=== PATIENT | female | born 1990 | race African-American/Black ===

== ENCOUNTER 2017-07-02 08:16 | Inpatient (IN) | payer SELFPAY ==
[~2017-07-02] VITALS: Ht 165.1 cm; Wt 73.0 kg
[2017-07-02] VITALS (22 sets, daily range): BP systolic 78–133; BP diastolic 49–107; PULSE 73–111; RESP 16–18; TEMP 98.1–99
[2017-07-02] MEDS ORDERED: LACTATED RINGER'S 1000 ML INJ 1,000 ML IV PRN (08:49)
--- NOTE | 2017-07-02 08:49 | HHI.HP ---
HPI Chief Complaint here for induction at 40 weeks Date Seen: Jul 02, 2017 Time Seen: 08:45 Travel History International Travel<30 Days: No Contact w/Intl Traveler<30Days: No Known Affected Area: No (came from [place] 90 days ago) History of Present Illness HPI 26 here for induction at 40 weeks Weeks Gestation: 40 Para: 1 : 2 History Past Medical History Medical History: Denies Significant Hx Past Surgical History Surgical History: No Previous Surgery Family History Family History: Negative Social History Alcohol Use: No Tobacco Use: No Substance Abuse: No Review of Systems Except as stated in HPI: all other systems reviewed are Neg Physical Exam Narrative GENERAL: Well-nourished, well-developed patient. SKIN: Warm and dry. HEAD: Normocephalic and atraumatic. EYES: No scleral icterus. No injection or drainage. ENT: No nasal drainage noted. Mucous membranes pink. Airway patent. NECK: Supple, trachea midline. No JVD. CARDIOVASCULAR: Regular rate and rhythm without murmurs, gallops, or rubs. RESPIRATORY: Breath sounds equal bilaterally. No accessory muscle use. BREASTS: Bilateral exam showed no masses , no retractions, no nipple discharge. ABDOMEN/GI: Abdomen soft, non-tender, bowel sounds present, no rebound, no guarding Gravid to 40 weeks size Fundal Height: [-] GENITOURINARY: External Genitalia: intact and normal in appearance BUS glands: [-] Cervix: [-] Dilatation: 2 Effacement: 70 Station: [-] Presentation: vtx Membranes: intact Uterine Contractions: [-] FHT's: Category: 1 Baseline: [-] Reactive: [-] Variability: [-] Decels: [-] EXTREMITIES: No cyanosis or edema. BACK: Nontender without obvious deformity. No CVA tenderness. NEUROLOGICAL: Awake and alert. Motor and sensory grossly within normal limits. Five out of 5 muscle strength in all muscle groups. Normal speech. Caprini VTE Risk Assessment Caprini VTE Risk Assessment: No/Low Risk (score <= 1) Caprini Risk Assessment Model Point Value = 1 Point Value = 2 Point Value = 3 Point Value = 5 Age 41-60 Minor surgery BMI > 25 kg/m2 Swollen legs Varicose veins or History of unexplained or recurrent spontaneous Oral contraceptives or hormone replacement Sepsis (< 1 month) Serious lung disease, including pneumonia (< 1 month) Abnormal pulmonary function Acute myocardial infarction Congestive heart failure (< 1 month) History of inflammatory bowel disease Medical patient at bed rest Age 61-74 Arthroscopic surgery Major open surgery (> 45 min) Laparoscopic surgery (> 45 min) Malignancy Confined to bed (> 72 hours) Immobilizing plaster cast Central venous access Age >= 75 History of VTE Family history of VTE Factor V Leiden Prothrombin [id number] Lupus anticoagulant Anticardiolipin antibodies Elevated serum homocysteine Heparin-induced thrombocytopenia Other congenital or acquired thrombophilia Stroke (< 1 month) Elective arthroplasty Hip, pelvis, or leg fracture Acute spinal cord injury (< 1 month) Prophylaxis Regimen Total Risk Factor Score Risk Level Prophylaxis Regimen 0-1 Low Early ambulation 2 Moderate Order ONE of the following: *Sequential Compression Device (SCD) *Heparin 5000 units SQ BID 3-4 Higher Order ONE of the following medications: *Heparin 5000 units SQ TID *Enoxaparin/Lovenox 40 mg SQ daily (WT < 150 kg, CrCl > 30 mL/min) *Enoxaparin/Lovenox 30 mg SQ daily (WT < 150 kg, CrCl > 10-29 mL/min) *Enoxaparin/Lovenox 30 mg SQ BID (WT < 150 kg, CrCl > 30 mL/min) AND/OR *Sequential Compression Device (SCD) 5 or more Highest Order ONE of the following medications: *Heparin 5000 units SQ TID (Preferred with Epidurals) *Enoxaparin/Lovenox 40 mg SQ daily (WT < 150 kg, CrCl > 30 mL/min) *Enoxaparin/Lovenox 30 mg SQ daily (WT < 150 kg, CrCl > 10-29 mL/min) *Enoxaparin/Lovenox 30 mg SQ BID (WT < 150 kg, CrCl > 30 mL/min) AND *Sequential Compression Device (SCD) Data Data Vital Signs Reviewed: Yes Group B Strep: Negative Assessment/Plan Problem List: (1) 40 weeks gestation of ICD Codes: Z3A.40 - 40 weeks gestation of Neeraj Pierre MD Jul 02, 2017 08:49
[2017-07-02] MEDS ORDERED: MINERAL OIL 10 ML VIAL TOPICAL PRN (09:00)
[2017-07-02] MEDS ORDERED: LIDOCAINE HCL 1% 50 ML VIAL INFIL PRN (09:00)
[2017-07-02] MEDS ORDERED: OXYTOCIN 30 UNITS-500ML PREMIX 500 ML IV SCH ×2 (09:00→16:30)
[2017-07-02] MEDS ORDERED: SODIUM CHLORID 0.9% 500 ML INJ 500 ML IV PRN (09:00)
[2017-07-02] MEDS ORDERED: LIDOCAINE HCL 1% 50 ML VIAL I-DERMAL PRN (09:00)
[2017-07-02] MEDS ORDERED: CITRIC ACID-SODIUM CITRATE LIQ 30 ML UDC PO SCH (09:00)
[2017-07-02] MEDS ORDERED: OXYTOCIN 30 UNITS-500ML PREMIX 500 ML IV ONE (09:00)
[2017-07-02 09:09] LABS: BASOPHIL % 0.2 % (0.0-2.0); EOSINOPHIL # 0.1 TH/MM3 (0-0.4); EOSINOPHIL % 1.2 % (0.0-4.0); HEMATOCRIT 37.1 % (35.0-46.0); HEMOGLOBIN 12.6 GM/DL (11.6-15.3); LYMPH % 20.2 % (9.0-44.0); LYMPHOCYTE # 1.7 TH/MM3 (1.0-4.8); MEAN CORPUSCULAR HEMOGLOBIN 28.8 PG (27.0-34.0); MEAN CORPUSCULAR HGB CONC 33.9 % (32.0-36.0); MONOCYTE # 0.7 TH/MM3 (0-0.9); NEUT % 70.4 % (16.0-70.0); PLATELET COUNT 149 TH/MM3 (150-450); RED BLOOD COUNT 4.37 MIL/MM3 (4.00-5.30); RED CELL DISTRIBUTION WIDTH 15.1 % (11.6-17.2); WHITE BLOOD COUNT 8.5 TH/MM3 (4.0-11.0)
[2017-07-02] MEDS ORDERED: SODIUM CHLOR 0.9% 1000 ML INJ 1,000 ML IV PRN (09:09)
[2017-07-02] MEDS: LACTATED RINGER'S 1000 ML INJ 1,000 ML IV SCH (09:13)
[2017-07-02 09:18] LABS: BILIRUBIN, URINE NEG (NEG); BLOOD, URINE NEG (NEG); GLUCOSE,URINE NEG (NEG); KETONE, URINE NEG (NEG); NITRITE,URINE NEG (NEG); SQUAMOUS EPITHELIAL CELL URINE <1 /hpf (0-5); URINE COLOR YELLOW (YELLW/STRAW); URINE LEUKOCYTE ESTERASE SMALL (NEG)
[2017-07-02 10:02] LABS: BANDS 4 % (0-6); LYMPHOCYTES 18 % (9-44); METAMYELOCYTES 3 % (0-1); MONOCYTES 11 % (0-8); MYELOCYTES 2 % (0-0); POLYS (SEG NEUTROPHILS) 62 % (16-70)
[2017-07-02 10:03] LABS: OVALOCYTES 1+ (NORMAL)
[2017-07-02] MEDS ORDERED: MEASLES, MUMPS, RUBELLA VACCINE 0.5 ML VIAL SQ ONE (16:00)
[2017-07-02] MEDS ORDERED: DIPHTH/TETANUS/ACEL PERTUSSIS (BOOSTER) 0.5 ML VIAL/PFS IM ONE (16:00)
--- NOTE | 2017-07-02 16:19 | PD.OB.DELI ---
Weeks gestation: 40 Gest age assessed date: Jul 02, 2017 Gest age assessed time: 09:00 Pt started active labor?: Yes Active labor start date: Jul 02, 2017 Active labor start time: 09:00 Medical induction of labor?: No Artificial rupture of membrane: Yes Artificial ROM date: Jul 02, 2017 Artifical ROM time: 09:55 Anesthesia: None Episiotomy: None Vaginal Delivery: Normal Presentation: Occiput anterior Nuchal Cord: None Delayed cord clamping (45 sec): Yes Shoulder Dystocia: Luba maneuver done Delivery date: Jul 02, 2017 Delivery time: 15:58 One Minute : 8 Five Minute : 9 Placenta: Spontaneous delivery Laceration: Vaginal laceration, 1 deg Repair: Chromic interrupted Estimated blood loss: 300 Neeraj Pierre MD Jul 02, 2017 16:19
[2017-07-02] MEDS ORDERED: ACETAMINOPHEN 325 MG TAB PO PRN (16:30)
[2017-07-02] MEDS ORDERED: ALUMINUM/MAGNESIUM/SIMETH 30 ML CUP PO PRN (16:30)
[2017-07-02] MEDS ORDERED: ZOLPIDEM TARTRATE 5 MG TAB PO PRN (16:30)
[2017-07-02] MEDS ORDERED: BENZOCAINE 20% TOPICAL SPRAY 60 ML CAN TOPICAL PRN (16:30)
[2017-07-02] MEDS ORDERED: DOCUSATE SODIUM 50 MG/SENNA 8.6 MG TAB PO PRN (16:30)
[2017-07-02] MEDS ORDERED: WITCH HAZEL 50%/GLYCERIN 12.5% 40 PAD JAR TOPICAL PRN (16:30)
[2017-07-02] MEDS ORDERED: ONDANSETRON ODT 4 MG TAB PO PRN (16:30)
[2017-07-02] MEDS ORDERED: oxyCODONE/ACETAMINOPHEN 5 MG/325 MG TAB PO PRN ×2 (16:30)
[2017-07-02] MEDS ORDERED: SODIUM CHLORIDE 0.9% FLUSH 10 ML FLUSH IV FLUSH PRN (16:30)
[2017-07-02] MEDS: IBUPROFEN 600 MG TAB PO PRN (16:34)
[2017-07-02] MEDS: SODIUM CHLORIDE 0.9% FLUSH 10 ML FLUSH IV FLUSH SCH (21:00)
[2017-07-03] MEDS: LACTATED RINGER'S 1000 ML INJ 1,000 ML IV SCH ×3 (01:00→17:00)
[2017-07-03 08:00] VITALS: BP 111/66; PULSE 65; RESP 16; TEMP 98.7
[2017-07-03] MEDS: SODIUM CHLORIDE 0.9% FLUSH 10 ML FLUSH IV FLUSH SCH ×2 (09:00→21:00)
--- NOTE | 2017-07-03 09:49 | HHI.OB ---
Subjective Post Day: 1 Remarks doing well Objective Vitals/I&O Vital Signs Date Time Temp Pulse Resp B/P (MAP) Pulse Ox O2 Delivery O2 Flow Rate FiO2 07/03/17 08:00 98.7 65 16 111/66 (81) 07/02/17 20:15 99.0 82 18 117/62 (80) 07/02/17 17:58 16 07/02/17 17:50 18 07/02/17 17:45 81 132/71 (91) 07/02/17 17:30 84 121/71 (88) 07/02/17 17:15 87 118/71 (87) 07/02/17 17:00 92 122/61 (81) 07/02/17 16:45 18 07/02/17 16:45 103 127/62 (83) 07/02/17 16:37 102 124/64 (84) 07/02/17 16:15 18 07/02/17 16:15 98.7 07/02/17 16:15 98 121/61 (81) 07/02/17 16:13 95 129/78 (95) 07/02/17 15:00 106 18 118/49 (72) 07/02/17 14:05 98.2 18 07/02/17 14:02 89 106/74 (85) 07/02/17 14:00 73 133/107 (116) 07/02/17 13:58 92 78/59 (65) 07/02/17 12:33 86 100/60 (73) 07/02/17 12:32 18 07/02/17 12:15 98.1 07/02/17 11:45 87 92/66 (75) 07/02/17 11:45 18 07/02/17 11:13 77 107/54 (71) 07/02/17 10:15 118/63 (81) 07/02/17 10:15 98.3 18 07/02/17 10:15 79 Objective Remarks GENERAL: Well-nourished, well-developed patient. ABDOMEN/GI: Abdomen soft, non-tender. Fundus: Firm, non-tender at umbilicus. GENITOURINARY: Light to moderate bleeding. EXTREMITIES: No cyanosis or edema, non-tender, without signs of DVT. Medications and IVs Current Medications Medications (Trade) Dose Ordered Sig/[place] Route Start Time Stop Time Status Last Admin Lactated Ringer's 1,000 ml @ 125 mls/hr Q8H IV 07/02/17 09:00 07/02/17 09:13 Lactated Ringer's 1,000 ml @ 3,000 mls/hr Q20M PRN IV 07/02/17 08:49 Sodium Chloride 1,000 ml @ 100 mls/hr Q10H PRN IV 07/02/17 09:09 (Xylocaine 1% Inj (50 ml)) 0.1 ml UNSCH X1 PRN I-DERMAL 07/02/17 09:00 07/05/17 08:59 (Bicitra Liq) 30 ml DENTAL SCHEDULING COORDINATOR PO 07/02/17 09:00 07/06/17 08:59 (fentaNYL INJ) 50 mcg Q1H PRN IV PUSH 07/02/17 09:00 (fentaNYL INJ) 100 mcg Q1H PRN IV PUSH 07/02/17 09:00 (Xylocaine 1% Inj (50 ml)) 10 ml UNSCH X1 PRN INFIL 07/02/17 09:00 07/04/17 08:59 07/02/17 16:25 (Muri-Lube Oil) 10 ml UNSCH PRN TOPICAL 07/02/17 09:00 Oxytocin 500 ml @ 0 mls/hr TITRATE IV 07/02/17 09:00 07/02/17 09:15 (Flu (Quadrivalent) Vaccine Inj) 0.5 ml ONCE ONCE IM 07/03/17 10:00 07/03/17 10:01 07/03/17 06:17 (NS Flush) 2 ml BID IV FLUSH 07/02/17 21:00 (NS Flush) 2 ml UNSCH PRN IV FLUSH 07/02/17 16:30 (Tylenol) 650 mg Q4H PRN PO 07/02/17 16:30 (Motrin) 600 mg Q6H PRN PO 07/02/17 16:30 07/02/17 16:34 (Percocet 5-325 Mg) 1 tab Q4H PRN PO 07/02/17 16:30 (Percocet 5-325 Mg) 2 tab Q4H PRN PO 07/02/17 16:30 (Americaine 20% Top Spr) 1 spray Q4H PRN TOPICAL 07/02/17 16:30 (Tucks Pads) 1 applic QID PRN TOPICAL 07/02/17 16:30 (Nichole-Colace) 2 tab Q12H PRN PO 07/02/17 16:30 (Ambien) 5 mg HS PRN PO 07/02/17 16:30 (Mag-Al Plus Susp Liq) 15 ml Q8H PRN PO 07/02/17 16:30 (Zofran Odt) 4 mg Q6H PRN PO 07/02/17 16:30 Assessment/Plan Problem List: (1) 40 weeks gestation of ICD Codes: Z3A.40 - 40 weeks gestation of Neeraj Pierre MD Jul 03, 2017 09:49
[2017-07-03] MEDS ORDERED: INFLUENZA VIRUS VACCINE (QUADRIVALENT) 0.5 ML SYR IM ONE (10:00)
[2017-07-03] MEDS: IBUPROFEN 600 MG TAB PO PRN ×2 (10:26→20:23)
[2017-07-03 19:34] VITALS: BP 115/63; PULSE 72; RESP 16; TEMP 97.9
[2017-07-04] MEDS: LACTATED RINGER'S 1000 ML INJ 1,000 ML IV SCH (01:00)
[2017-07-04 09:19] VITALS: BP 113/78; PULSE 80; RESP 16; TEMP 98.7
--- NOTE | 2017-07-04 12:31 | HHI.DCPOC ---
Discharge Care Plan Diagnosis: (1) Spontaneous vaginal delivery Report Symptoms to Your Doctor -Temperature above 100.5 degrees -Redness, of incision or excessive or foul smelling drainage -Unusual pain or calf pain -Increased vaginal bleeding -Painful or difficulty urinating -Feelings of extreme sadness or anxiety after 2 weeks Goals to Promote Your Health * To prevent worsening of your condition and complications * To maintain your health at the optimal level Directions to Meet Your Goals Take your medications as prescribed Follow your dietary instruction Follow activity as directed Ensure plenty of rest for recovery Drink fluids for hydration Keep your appointments as scheduled Take your immunizations and boosters as scheduled If your symptoms worsen call your PCP, if no PCP go to Urgent Care Center or Emergency Room Smoking is Dangerous to Your Health. Avoid second hand smoke Call the 24-hour crisis hotline for domestic abuse at Neeraj Pierre MD Jul 04, 2017 12:31
--- NOTE | 2017-07-04 12:31 | HHI.DCPOC ---
Discharge Care Plan Diagnosis: (1) Spontaneous vaginal delivery Report Symptoms to Your Doctor -Temperature above 100.5 degrees -Redness, of incision or excessive or foul smelling drainage -Unusual pain or calf pain -Increased vaginal bleeding -Painful or difficulty urinating -Feelings of extreme sadness or anxiety after 2 weeks Goals to Promote Your Health * To prevent worsening of your condition and complications * To maintain your health at the optimal level Directions to Meet Your Goals Take your medications as prescribed Follow your dietary instruction Follow activity as directed Ensure plenty of rest for recovery Drink fluids for hydration Keep your appointments as scheduled Take your immunizations and boosters as scheduled If your symptoms worsen call your PCP, if no PCP go to Urgent Care Center or Emergency Room Smoking is Dangerous to Your Health. Avoid second hand smoke Call the 24-hour crisis hotline for domestic abuse at Neeraj Pierre MD Jul 04, 2017 12:31
--- NOTE | 2017-07-04 12:31 | HHI.DCPOC ---
Discharge Care Plan Diagnosis: (1) Spontaneous vaginal delivery Report Symptoms to Your Doctor -Temperature above 100.5 degrees -Redness, of incision or excessive or foul smelling drainage -Unusual pain or calf pain -Increased vaginal bleeding -Painful or difficulty urinating -Feelings of extreme sadness or anxiety after 2 weeks Goals to Promote Your Health * To prevent worsening of your condition and complications * To maintain your health at the optimal level Directions to Meet Your Goals Take your medications as prescribed Follow your dietary instruction Follow activity as directed Ensure plenty of rest for recovery Drink fluids for hydration Keep your appointments as scheduled Take your immunizations and boosters as scheduled If your symptoms worsen call your PCP, if no PCP go to Urgent Care Center or Emergency Room Smoking is Dangerous to Your Health. Avoid second hand smoke Call the 24-hour crisis hotline for domestic abuse at Neeraj Pierre MD Jul 04, 2017 12:31
[2017-07-04] MEDS ORDERED: OXYC1TAB63 PO (12:32)
--- NOTE | 2017-07-04 12:33 | HHI.DCPOC ---
Discharge Care Plan Diagnosis: (1) Spontaneous vaginal delivery Report Symptoms to Your Doctor -Temperature above 100.5 degrees -Redness, of incision or excessive or foul smelling drainage -Unusual pain or calf pain -Increased vaginal bleeding -Painful or difficulty urinating -Feelings of extreme sadness or anxiety after 2 weeks Goals to Promote Your Health * To prevent worsening of your condition and complications * To maintain your health at the optimal level Directions to Meet Your Goals Take your medications as prescribed Follow your dietary instruction Follow activity as directed Ensure plenty of rest for recovery Drink fluids for hydration Keep your appointments as scheduled Take your immunizations and boosters as scheduled If your symptoms worsen call your PCP, if no PCP go to Urgent Care Center or Emergency Room Smoking is Dangerous to Your Health. Avoid second hand smoke Call the 24-hour crisis hotline for domestic abuse at Neeraj Pierre MD Jul 04, 2017 12:33
--- NOTE | 2017-07-04 12:33 | HHI.DCPOC ---
Discharge Care Plan Diagnosis: (1) Spontaneous vaginal delivery Report Symptoms to Your Doctor -Temperature above 100.5 degrees -Redness, of incision or excessive or foul smelling drainage -Unusual pain or calf pain -Increased vaginal bleeding -Painful or difficulty urinating -Feelings of extreme sadness or anxiety after 2 weeks Goals to Promote Your Health * To prevent worsening of your condition and complications * To maintain your health at the optimal level Directions to Meet Your Goals Take your medications as prescribed Follow your dietary instruction Follow activity as directed Ensure plenty of rest for recovery Drink fluids for hydration Keep your appointments as scheduled Take your immunizations and boosters as scheduled If your symptoms worsen call your PCP, if no PCP go to Urgent Care Center or Emergency Room Smoking is Dangerous to Your Health. Avoid second hand smoke Call the 24-hour crisis hotline for domestic abuse at Neeraj Pierre MD Jul 04, 2017 12:33
--- NOTE | 2017-07-04 12:33 | HHI.DCPOC ---
Discharge Care Plan Diagnosis: (1) Spontaneous vaginal delivery Report Symptoms to Your Doctor -Temperature above 100.5 degrees -Redness, of incision or excessive or foul smelling drainage -Unusual pain or calf pain -Increased vaginal bleeding -Painful or difficulty urinating -Feelings of extreme sadness or anxiety after 2 weeks Goals to Promote Your Health * To prevent worsening of your condition and complications * To maintain your health at the optimal level Directions to Meet Your Goals Take your medications as prescribed Follow your dietary instruction Follow activity as directed Ensure plenty of rest for recovery Drink fluids for hydration Keep your appointments as scheduled Take your immunizations and boosters as scheduled If your symptoms worsen call your PCP, if no PCP go to Urgent Care Center or Emergency Room Smoking is Dangerous to Your Health. Avoid second hand smoke Call the 24-hour crisis hotline for domestic abuse at Neeraj Pierre MD Jul 04, 2017 12:33
--- NOTE | 2017-07-04 12:34 | HHI.DS ---
Admission Date Jul 02, 2017 at 08:16 Discharge Date: Jul 04, 2017 Admitting Diagnosis Diagnosis: (1) Spontaneous vaginal delivery Diagnosis: Principal ICD Codes: O80 - Encounter for full-term uncomplicated delivery Delivery Date: Jul 02, 2017 Brief History 26 here for induction at 40 weeks Hospital Course and DC home ppd #2 Pt Condition on Discharge: Good Discharge Disposition: Discharge Home Discharge Instructions Diet Instructions: As Tolerated, No Restrictions Activities You Can Perform: Pelvic Rest Activities to Avoid: Driving for 24 hrs Follow up Referrals: DEVELOPMENT CHEMIST - 2 Weeks @ [facility] with Neeraj Pierre MD PCP Follow-up New Medications: Oxycodone-Acetaminophen (Oxycodone-Acetaminophen) 5-325 mg Tab 1 TAB PO Q4H PRN for PAIN SCALE 3 TO 5, #20 TAB 0 Refills Neeraj Pierre MD Jul 04, 2017 12:34
--- NOTE | 2017-07-04 12:34 | HHI.DS ---
Admission Date Jul 02, 2017 at 08:16 Discharge Date: Jul 04, 2017 Admitting Diagnosis Diagnosis: (1) Spontaneous vaginal delivery Diagnosis: Principal ICD Codes: O80 - Encounter for full-term uncomplicated delivery Delivery Date: Jul 02, 2017 Brief History 26 here for induction at 40 weeks Hospital Course and DC home ppd #2 Pt Condition on Discharge: Good Discharge Disposition: Discharge Home Discharge Instructions Diet Instructions: As Tolerated, No Restrictions Activities You Can Perform: Pelvic Rest Activities to Avoid: Driving for 24 hrs Follow up Referrals: INFANT CHILDCARE PROVIDER - 2 Weeks @ [facility] with Neeraj Pierre MD PCP Follow-up New Medications: Oxycodone-Acetaminophen (Oxycodone-Acetaminophen) 5-325 mg Tab 1 TAB PO Q4H PRN for PAIN SCALE 3 TO 5, #20 TAB 0 Refills Neeraj Pierre MD Jul 04, 2017 12:34
--- NOTE | 2017-07-04 12:34 | HHI.DS ---
Admission Date Jul 02, 2017 at 08:16 Discharge Date: Jul 04, 2017 Admitting Diagnosis Diagnosis: (1) Spontaneous vaginal delivery Diagnosis: Principal ICD Codes: O80 - Encounter for full-term uncomplicated delivery Delivery Date: Jul 02, 2017 Brief History 26 here for induction at 40 weeks Hospital Course and DC home ppd #2 Pt Condition on Discharge: Good Discharge Disposition: Discharge Home Discharge Instructions Diet Instructions: As Tolerated, No Restrictions Activities You Can Perform: Pelvic Rest Activities to Avoid: Driving for 24 hrs Follow up Referrals: AUTOMATION AND CONTROLS SUPERVISOR - 2 Weeks @ [facility] with Neeraj Pierre MD PCP Follow-up New Medications: Oxycodone-Acetaminophen (Oxycodone-Acetaminophen) 5-325 mg Tab 1 TAB PO Q4H PRN for PAIN SCALE 3 TO 5, #20 TAB 0 Refills Neeraj Pierre MD Jul 04, 2017 12:34
--- NOTE | 2017-07-04 12:35 | HHI.OB ---
Subjective Post Day: 2 Remarks doing well dc home Objective Vitals/I&O Vital Signs Date Time Temp Pulse Resp B/P (MAP) Pulse Ox O2 Delivery O2 Flow Rate FiO2 07/04/17 09:19 98.7 80 16 07/04/17 09:19 113/78 (90) 07/03/17 19:34 97.9 72 16 07/03/17 19:34 115/63 (80) Objective Remarks GENERAL: Well-nourished, well-developed patient. ABDOMEN/GI: Abdomen soft, non-tender. Fundus: Firm, non-tender at umbilicus. GENITOURINARY: Light to moderate bleeding. EXTREMITIES: No cyanosis or edema, non-tender, without signs of DVT. Medications and IVs Current Medications Medications (Trade) Dose Ordered Sig/[place] Route Start Time Stop Time Status Last Admin Lactated Ringer's 1,000 ml @ 125 mls/hr Q8H IV 07/02/17 09:00 07/02/17 09:13 Lactated Ringer's 1,000 ml @ 3,000 mls/hr Q20M PRN IV 07/02/17 08:49 Sodium Chloride 1,000 ml @ 100 mls/hr Q10H PRN IV 07/02/17 09:09 (Xylocaine 1% Inj (50 ml)) 0.1 ml UNSCH X1 PRN I-DERMAL 07/02/17 09:00 07/05/17 08:59 (Bicitra Liq) 30 ml MUSIC INDUSTRY INTERN PO 07/02/17 09:00 07/06/17 08:59 (fentaNYL INJ) 50 mcg Q1H PRN IV PUSH 07/02/17 09:00 (fentaNYL INJ) 100 mcg Q1H PRN IV PUSH 07/02/17 09:00 (Muri-Lube Oil) 10 ml UNSCH PRN TOPICAL 07/02/17 09:00 Oxytocin 500 ml @ 0 mls/hr TITRATE IV 07/02/17 09:00 07/02/17 09:15 (NS Flush) 2 ml BID IV FLUSH 07/02/17 21:00 (NS Flush) 2 ml UNSCH PRN IV FLUSH 07/02/17 16:30 (Tylenol) 650 mg Q4H PRN PO 07/02/17 16:30 (Motrin) 600 mg Q6H PRN PO 07/02/17 16:30 07/03/17 20:23 (Percocet 5-325 Mg) 1 tab Q4H PRN PO 07/02/17 16:30 (Percocet 5-325 Mg) 2 tab Q4H PRN PO 07/02/17 16:30 (Americaine 20% Top Spr) 1 spray Q4H PRN TOPICAL 07/02/17 16:30 (Tucks Pads) 1 applic QID PRN TOPICAL 07/02/17 16:30 (Nichole-Colace) 2 tab Q12H PRN PO 07/02/17 16:30 (Ambien) 5 mg HS PRN PO 07/02/17 16:30 (Mag-Al Plus Susp Liq) 15 ml Q8H PRN PO 07/02/17 16:30 (Zofran Odt) 4 mg Q6H PRN PO 07/02/17 16:30 Assessment/Plan Problem List: (1) 40 weeks gestation of ICD Codes: Z3A.40 - 40 weeks gestation of Neeraj Pierre MD Jul 04, 2017 12:35
== END 2017-07-04 14:20 | disposition home or self-care (01) | DRG 775 ==
LOC: H2EB 08:16 → H1EA 18:15
PROVIDERS: ADMIT Obstetrics & Gynecology; ATTEND Obstetrics & Gynecology
PROC: 10E0XZZ Delivery of Products of Conception, External Approach (ICD-10-PCS; principal; 2017-07-02)
PROC: 10907ZC Drainage of Amniotic Fluid, Therapeutic from Products of Conception, Via Natural or Artificial Opening (ICD-10-PCS; 2017-07-02)
PROC: 0HQ9XZZ Repair Perineum Skin, External Approach (ICD-10-PCS; 2017-07-02)
DX: O70.0 First degree perineal laceration during delivery (principal); O66.0 Obstructed labor due to shoulder dystocia; Z37.0 Single live birth; Z3A.40 40 weeks gestation of pregnancy; Z23 Encounter for immunization
CPT/HCPCS: 59025; 80307; 81001; 85007; 85027; 86900; 86901; 90686; 90715; J2590; J7120; Q2038